=== PATIENT | female | born 1960 | race African-American/Black ===

== ENCOUNTER 2016-07-30 10:22 | Emergency (ER) | payer MEDICAID ==
[~2016-07-30] VITALS: Ht 165.1 cm; Wt 68.0 kg
[2016-07-30 10:39] VITALS: BP 116/70
== END 2016-07-30 12:48 | disposition home or self-care (01) ==
LOC: ER 10:22
DX: N76.2 Acute vulvitis (principal); M54.5 Low back pain; G89.29 Other chronic pain

== ENCOUNTER 2016-10-26 10:12 | Emergency (ER) | payer MEDICAID ==
[~2016-10-26] VITALS: Ht 165.1 cm; Wt 70.3 kg
[2016-10-26 10:47] VITALS: BP 134/86
[2016-10-26] MEDS ORDERED: TETANUS-DIPTH-ACEL PERTUSSIS 0.5ML SYRG IM ONE (11:00)
== END 2016-10-26 11:22 | disposition home or self-care (01) ==
LOC: ER 10:14
DX: S00.06XA Insect bite (nonvenomous) of scalp, initial encounter (principal); W57.XXXA Bitten or stung by nonvenomous insect and other nonvenomous arthropods, initial encounter; Y93.89 Activity, other specified; Y99.8 Other external cause status; Y92.89 Other specified places as the place of occurrence of the external cause
CPT/HCPCS: 90471; 90715

== ENCOUNTER 2017-12-30 07:03 | Emergency (ER) | payer MEDICAID ==
[~2017-12-30] VITALS: Ht 165.1 cm; Wt 72.6 kg
[2017-12-30 07:15] VITALS: BP 150/85
== END 2017-12-30 07:37 | disposition home or self-care (01) ==
LOC: ER 07:06
DX: S91.341A Puncture wound with foreign body, right foot, initial encounter (principal); W22.09XA Striking against other stationary object, initial encounter; Y93.01 Activity, walking, marching and hiking; Y92.89 Other specified places as the place of occurrence of the external cause; Y99.8 Other external cause status